=== PATIENT | female | born 1950 | race Caucasian/White ===

== ENCOUNTER 2017-08-23 07:22 | Day surgery (SDC) | payer OTHER ==
[~2017-08-23] VITALS: Ht 170.2 cm; Wt 99.0 kg
[2017-08-23] VITALS (11 sets, daily range): BP systolic 107–146; BP diastolic 39–63; PULSE 68–73; TEMP 36.3–36.9; O2SAT 93–98; Ht 170.2 cm; Wt 99.0 kg
[2017-08-23] MEDS ORDERED: PRAM0.129 PO (08:52)
[2017-08-23] MEDS ORDERED: FLUT1AER14 (08:52)
[2017-08-23] MEDS ORDERED: DOFE250C (08:52)
[2017-08-23] MEDS ORDERED: DULO-24 PO (08:52)
[2017-08-23] MEDS ORDERED: MAGN400T6 PO (08:52)
[2017-08-23] MEDS ORDERED: BIOFTAB24 (08:52)
[2017-08-23] MEDS ORDERED: PRAV20TA PO (08:52)
[2017-08-23] MEDS ORDERED: ACET-749 PO (08:52)
[2017-08-23] MEDS ORDERED: IPRASOL4 INH (08:52)
[2017-08-23] MEDS ORDERED: POTA10CA28 PO (08:52)
[2017-08-23] MEDS ORDERED: DIGO1TAB90 (08:52)
[2017-08-23] MEDS ORDERED: CALC500C70 PO (08:52)
[2017-08-23] MEDS ORDERED: LSX/40 PO (08:52)
[2017-08-23] MEDS ORDERED: IPRA1AER2 INH (08:52)
[2017-08-23] MEDS ORDERED: INSU1.2I (08:52)
[2017-08-23] MEDS ORDERED: METF-384 PO (08:52)
[2017-08-23] MEDS ORDERED: RIVA1TAB4 PO (08:52)
[2017-08-23] MEDS ORDERED: METO100T14 PO (08:52)
[2017-08-23] MEDS ORDERED: CLR10 PO (08:52)
--- NOTE | 2017-08-23 10:21 | Discharge Instructions ---
Discharge Instructions Procedure Procedure Date: Aug 23, 2017. Reason for visit: Memory Loss, Dementia *W/Opening Pressure. Discharge Discharge Date: Aug 23, 2017. Discharge Diagnosis: Memory loss Instructions Activity Recommendations: 1 Day-May resume regular activity, 48 Hours of decreased exertion, 1 Day with no exercise/sex/sports, 1 Day with no driving/ machine use Return to School/Work: limitations (light activity for 48 hours) Recommended Home Diet: Resume Previous Diet Provider Instructions: Fluoroscopic guided lumbar puncture is performed at L4-L5. There were no immediate complications. ACTIVITY RECOMMENDATIONS: * Rest today. * Resume regular activity in one day. MEDICATIONS: * May take Tylenol or Ibuprofen as needed for pain. DIET: * Resume previous diet. SPECIAL CARE INSTRUCTIONS: Call your doctor if: * Temperature above 101 degrees F. * Pain not relieved by pain medicine ordered. * Increased drainage or redness from incision. * Notify your doctor with any questions or concerns. Call your doctor or go to the nearest Emergency Department if you experience: * Increased chest pain or shortness of breath. FOLLOW UP VISIT: Follow-up with Referring Physician as scheduled. Allergies Uncoded Allergies: PENICILLIN (Allergy, Severe, Anaphalaxis, 08/23/17) SHELL FISH (Allergy, Severe, Anaphalaxis, 08/23/17) TETANUS (Allergy, Intermediate, Muscle spasms, 08/23/17) [employer] Recommendations: Call your doctor if: * Temperature above 101 degrees * Pain not relieved by pain medicine ordered * There is increased drainage or redness from any incision * You have any unanswered questions or concerns. Your Doctors Instructions noted above were prepared by provider Henrry Meng. Patient Signature Section: Patient Instructions Signature Page Becky Rojas Patient (or Guardian) Signature/Date: I have read and understand the instructions given to me by my caregivers. Caregiver/RN/Doctor Signature/Date: The above-named patient and/or guardian has received patient instructions on this date. + Original Patient Signature Page (only) stays with chart. Please make copy for patient.
[2017-08-23] MEDS ORDERED: ACETAMINOPHEN 500 MG TAB PO PRN (10:30)
--- NOTE | 2017-08-23 10:49 | DIAGNOSTIC IMAGING REPORT ---
FLUOROSCOPIC GUIDED LUMBAR PUNCTURE CLINICAL HISTORY: Dementia. Memory loss. PROCEDURE: The risks, benefits, and alternatives to the procedure is discussed with the patient who voiced understanding. Written informed consent was obtained. The patient was placed prone on the fluoroscopy table. The lower back was prepped and draped in the usual sterile fashion. 1% lidocaine was used for local anesthesia. The L2-L3 and L3-L4 levels were attempted unsuccessfully. A 20-gauge spinal needle was inserted into the L4-L5 interlaminar space, opening pressures were obtained, and approximately 10 cc of clear colorless cerebrospinal fluid was removed. The patient tolerated the procedure well. There were no immediate complications. The patient was then transported to the medical treatment unit for further observation. Fluoroscopy time: 4.0 minutes. Opening Pressure: 10 cm of water. IMPRESSION: Fluoroscopic guided lumbar puncture with removal of approximately 10 cc of cerebrospinal fluid. There were no immediate complications. Electronically signed by: Henrry Meng M.D. 08/23/2017 10:48 AM Dictated Date/Time: 08/23/2017 10:41 AM
[2017-08-23 11:04] LABS: CSF GLUCOSE 99 mg/dl (40-70); CSF TOTAL PROTEIN 80.2 mg/dl (15.0-45.0)
== END 2017-08-23 14:35 | disposition home or self-care (01) ==
LOC: C.ACU 07:22
PROVIDERS: ATTEND Psychiatry & Neurology Neurology
DX: G35 Multiple sclerosis (principal)